=== PATIENT | female | born 1985 | race Two or more races ===

== ENCOUNTER → 2018-09-09 | Outpatient (CLI) | payer BC ==
--- NOTE | 2018-09-09 16:25 | RAD ---
Obstetrical ultrasound, 09/09/2018: HISTORY: No heart tones Transabdominal scans were obtained. The uterus is enlarged. It contains a single gestational sac. The gestational sac contains a pole demonstrating a crown-rump length of 6.3 cm. This suggests a gestational age of 12 weeks and 5 days yielding a sonographic EDC of 03/19/2019. cardiac activity and heart motion is seen. The heart rate was 149 bpm. No subchorionic hemorrhage is evident. The right ovary is unremarkable. The left ovary was not visualized. No free fluid is evident in the pelvis. IMPRESSION: Single viable intrauterine fetus of 12-13 weeks gestational age. Electronically signed by: Sebas Obregon MD (09/09/2018 4:22 PM) [facility]
== END | disposition home or self-care (01) ==
LOC: US 14:51
PROVIDERS: ATTEND Family Medicine
DX: Z34.91 Encounter for supervision of normal pregnancy, unspecified, first trimester (principal); Z3A.12 12 weeks gestation of pregnancy
CPT/HCPCS: 76801

== ENCOUNTER → 2018-10-29 | Outpatient (CLI) | payer BC, OTHER ==
--- NOTE | 2018-10-29 16:49 | KCIC ---
Examination: PREG MORE THAN OR EQ TO 14 WKS History: Estimated weight, anatomic evaluation Comparison/Correlation: 09/02/2018 OB ultrasound exam Findings: Single living intrauterine gestation is present. Average ultrasound age is 20 weeks 1 day with EDC of 03/17/2019. This very closely approximates age and EDC by last menstrual period. Estimated weight is 346 g +/- 51 g. Cephalic lie noted. heart rate is 130 bpm. Fundal location of the placenta is present. Cephalic index is 80.8 and this is within normal range. Head circumference to abdominal circumference ratio is 1.19 and this is within normal range. Femur length to biparietal diameter ratio 74.2. Femur length to head circumference ratio is 19.6. Femur length to abdominal circumference ratio is 23.2. Biparietal diameter is 4.61 cm corresponding to 20 weeks 0 day. Head circumference is 17.49 cm corresponding to 20 weeks 0 day. Abdominal circumference is 14.74 cm corresponding to 20 weeks 0 day. Femur length is 3.42 cm corresponding 20 weeks 5 day. Amniotic fluid index is 12.5. Impression: Single living intrauterine gestation is present with average ultrasound age corresponding to 20 weeks 1 day. This closely approximates age by last menstrual period. Adequate interval growth is identified since the prior OB ultrasound exam of 09/09/2018. Electronically signed by: Jason Fink MD (10/29/2018 4:45 PM) [id number]
== END | disposition home or self-care (01) ==
LOC: KCIC US 08:52
PROVIDERS: ATTEND Family Medicine
DX: Z34.02 Encounter for supervision of normal first pregnancy, second trimester (principal); Z3A.20 20 weeks gestation of pregnancy
CPT/HCPCS: 76805

== ENCOUNTER → 2019-02-15 | Outpatient (CLI) | payer BC, OTHER ==
--- NOTE | 2019-02-15 09:49 | KCIC ---
EXAM: Obstetrics sonogram. HISTORY: Supervision of normal . TECHNIQUE: Sonographic imaging of a gravid uterus was performed. COMPARISON: 10/29/2018. FINDINGS: There is a single intrauterine fetus in cephalic presentation with a heart rate of 137 bpm. There is a fundal anterior placenta without evidence of placenta previa. The amniotic fluid index is normal at 11.8 cm. The cervix is closed and measures 4.7 cm in length. The biparietal diameter is 8.71 cm, corresponding with 35 weeks and 1 day. The head circumference is 31.35 cm, corresponding with 35 weeks and 1 day. The abdominal circumference is 30.40 cm, corresponding with 34 weeks and 3 days. The femoral length is 6.72 cm, corresponding with 34 weeks and 4 days. The estimated gestational age patient combined ultrasound measurements is 34 weeks and 6 days and the estimated weight is 2463 g. This at the 33rd percentile for an estimated gestational age of 35 weeks and 3 days based on the LMP. The estimated due date is 03/23/2019. IMPRESSION: Single intrauterine fetus in cephalic presentation with a heart rate of 137 bpm and gestational age based on ultrasound measurements of 34 weeks and 6 days. The anatomy is not formally assessed on this exam due to relatively late gestational age. Electronically signed by: Alessandra Aguirre MD (02/15/2019 9:46 AM) [place] [id number]
== END | disposition home or self-care (01) ==
LOC: KCIC US 09:00
PROVIDERS: ATTEND Family Medicine
DX: O26.893 Other specified pregnancy related conditions, third trimester (principal); Z3A.34 34 weeks gestation of pregnancy
CPT/HCPCS: 76805

== ENCOUNTER → 2019-03-14 | Outpatient (CLI) | payer BC, OTHER ==
--- NOTE | 2019-03-14 16:10 | KCIC ---
Examination: OB LIMITED History: Possible breech . Sizing and positioning information requested. Comparison/Correlation: None Findings: Single living intrauterine gestation with cephalic lie is present. movement is present with heart rate of 133 beats per minute. Cervical length is 5.44 cm. Oligohydramnios is present with amniotic fluid index of 3 cm. measurements include: Biparietal diameter: 9.35 cm corresponding to 38 weeks 0 days. Femur length of 7.28 cm corresponding to 37 weeks 2 days. Head circumference of 32.56 cm corresponding to 36 weeks 6 days. Abdominal circumference of 33.77 cm corresponding to 37 weeks 2 days. Age by 4 parameters corresponds to 37 weeks 3 days. EDC by average age is 04/01/2019. Gestational age by last menstrual period is 39 weeks 2 days. Cephalic index of 86.8 which is above normal limits. H/A ratio is 0.96. FL/BPD is 77.9. FL/ AC is 21.6. Estimated weight is 3237 g +/- 479 g and this is at the 37th percentile. Grade 3 placenta is anteriorly located. Impression: Left than expected interval growth with age by ultrasound parameters of 37 weeks 3 days. This compares to 34 weeks 6 days on ultrasound exam dated 02/05/2019. Oligohydramnios. Cephalic lie noted. Electronically signed by: Jason Fink MD (03/14/2019 4:07 PM) [facility]
== END | disposition home or self-care (01) ==
LOC: KCIC US 14:41
PROVIDERS: ATTEND Family Medicine
DX: O41.03X0 Oligohydramnios, third trimester, not applicable or unspecified (principal); Z3A.37 37 weeks gestation of pregnancy
CPT/HCPCS: 76815